=== PATIENT | female | born 2000 | race Caucasian/White ===

== ENCOUNTER 2019-12-20 23:20 | Emergency (ER) | payer OTHER ==
[2019-12-20] MEDS ORDERED: Metoclopramide 10 MG/2 ML SDV IVPUSH ONE (23:39)
[2019-12-20] MEDS ORDERED: Sodium Chloride 0.9% 10 ML Syringe FLUSH PRN (23:39)
[2019-12-20] MEDS ORDERED: diphenhydrAMINE 50 MG/ML SDV IVPUSH ONE (23:39)
[2019-12-20] MEDS ORDERED: Ketorolac 30 MG/ML SDV IVPUSH ONE (23:39)
[2019-12-20] MEDS ORDERED: Lactated Ringers 1,000 ML IV ONE (23:39)
--- NOTE | 2019-12-21 00:05 | EDM.PDOC ---
ED HPI GENERAL MEDICAL PROBLEM - General Chief Complaint: Headache Stated Complaint: Migraine Time Seen by Provider: 12/20/19 23:20 Source of Information: Reports: Patient History Limitations: Reports: No Limitations - History of Present Illness INITIAL COMMENTS - FREE TEXT/NARRATIVE: Patient comes emergency department tonight with complaints of a migraine. This patient has chronic migraines but really only 1-2 a year that she requires abortive therapy in the emergency department. Starting at about 1800 hrs. tonight she had a global tentorium pounding sensation. She has photophobia phonophobia nausea and vomiting. She also gets a little bit of blurry vision. No floaters or flashers. No recent head injury. No falls. No confusion. This is not the worst migraine she is ever had. This is a typical migraine pattern for her. She did try her Imitrex at home without resolution. She also took 2 Excedrin that did not help either. She has no fever and chills. Weakness dizziness lightheadedness. No chest pain no shortness of breath or difficulty breathing. No cough or congestion. No hematuria dysuria or urinary frequency. No black or tarry stools. No change in the functionality of her upper or lower extremities. No change in the sensation of her upper or lower extremities. She is able to ambulate without difficulty. Treatments UNDERWEAR TRIMMER: Reports: Other (see below) Other Treatments UNDERWEAR TRIMMER: Imitrex whole head Pain Score (Numeric/FACES): 10 - Related Data Allergies Allergy/AdvReac Type Severity Reaction Status Date / Time No Known Allergies Allergy Verified 12/20/19 23:37 Home Meds: Home Meds SUMAtriptan [Imitrex] 50 mg PO ASDIRECTED PRN 12/20/19 [History] ED ROS GENERAL - Review of Systems Review Of Systems: Comprehensive ROS is negative, except as noted in HPI. - Physical Exam Exam: See Below Exam Limited By: No Limitations General Appearance: Alert, WD/WN, No Apparent Distress Eye Exam: Bilateral Eye: EOMI, PERRL Ears: Normal External Exam, Normal Canal, Normal TMs Nose: Normal Inspection, Normal Mucosa Throat/Mouth: Normal Inspection, Normal Lips, Normal Teeth Head Exam: Atraumatic, Normocephalic Neck: Normal Inspection, Supple, Non-Tender Respiratory/Chest: No Respiratory Distress, Lungs Clear, Normal Breath Sounds, Chest Non-Tender Cardiovascular: Normal Peripheral Pulses, Regular Rate, Rhythm GI/Abdominal: Normal Bowel Sounds, Soft, Non-Tender (Female) Exam: Deferred Rectal (Female) Exam: Deferred Neuro Exam (Abbreviated): Alert, Oriented, CN II-XII Intact, Normal Cognition, Normal Gait, Normal Reflexes, No Motor/Sensory Deficits Back Exam: Normal Inspection Extremities: Normal Inspection, Normal Range of Motion, Normal Capillary Refill Psychiatric: Normal Affect, Normal Mood Skin Exam: Warm, Dry, Intact, Normal Color, No Rash Course - Vital Signs Last Recorded V/S: Last Vital Signs Temp 96.4 F L 12/20/19 23:20 Pulse 102 H 12/20/19 23:20 Resp 16 12/20/19 23:20 BP 141/88 H 12/20/19 23:20 Pulse Ox 97 12/20/19 23:20 - Orders/Labs/Meds Orders: Active Orders 24 hr Category Date Time Status Peripheral IV Insertion Adult [OM.PC] Stat Oth 12/20/19 23:39 Ordered Meds: Medications Discontinued Medications Generic Name Dose Route Start Last Admin Trade Name Jose Carlosq PRN Reason Stop Dose Admin Diphenhydramine HCl 25 mg 12/20/19 23:39 12/20/19 23:52 Benadryl IVPUSH 12/20/19 23:40 25 mg ONETIME ONE Administration Lactated Ringer's 1,000 mls @ 999 mls/hr 12/20/19 23:39 12/20/19 23:30 Ringers, Lactated IV 12/21/19 00:39 999 mls/hr ONETIME ONE Administration Ketorolac Tromethamine 30 mg 12/20/19 23:39 12/20/19 23:50 Toradol IVPUSH 12/20/19 23:40 30 mg ONETIME ONE Administration Metoclopramide HCl 10 mg 12/20/19 23:39 12/20/19 23:48 Reglan IVPUSH 12/20/19 23:40 10 mg ONETIME ONE Administration Sodium Chloride 10 ml 12/20/19 23:39 Saline Flush FLUSH ASDIRECTED PRN Keep Vein Open - Re-Assessments/Exams Free Text/Narrative Re-Assessment/Exam: An IV was established. 1 L LR wide open. 25 mg of Benadryl IV push. Ketorolac 30 mg IV push. Reglan 10 mg IV push. Patient rested comfortably over the next hour or so. She had about 90% improvement of her headache. He feels much better. She would like to go home and sleep. I discussed the importance of the use of Imitrex at the very early stages of a migraine which it sounds like she had waited a little bit before she had taken this. Increase fluids and rest as much as possible over the next couple of days. She can also try some [id number] Benadryl for abortive therapy as well. She is understanding of this and her questions are answered. Departure - Departure Time of Disposition: 00:17 Disposition: Home, Self-Care 01 Clinical Impression: Migraine - Discharge Information Instructions: Migraine Headache, [id number], Pain Medicine Instructions, [id number] Referrals: PCP,Unobtain [Ordering Only Provider] - Forms: ED Department Discharge Additional Instructions: Go home rest the next few days. Tylenol and or Ibuprofen as needed for pain. Also consider a 50mg dose of benadryl OTC if you have reoccurrence of the migraine that Imitrex does not resolve the headache. Plenty of fluids over the next few days. Return to the ED if new or worsening symptoms. Follow up with PCP in the next 4-6 days if not improving sooner if worse. Sepsis Event Note (ED) - Evaluation Sepsis Screening Result: No Definite Risk - My Orders Last 24 Hours: My Active Orders 12/20/19 23:39 Peripheral IV Insertion Adult [OM.PC] Stat - Assessment/Plan Last 24 Hours: My Active Orders 12/20/19 23:39 Peripheral IV Insertion Adult [OM.PC] Stat
== END 2019-12-21 00:44 | disposition home or self-care (01) ==
LOC: VM.ED 23:20
DX: G43.909 Migraine, unspecified, not intractable, without status migrainosus (principal)
CPT/HCPCS: 96374; 96375; 99283; 99283-25; J1200; J1885; J2765; J7120